=== PATIENT | male | born 1960 ===

== ENCOUNTER 2017-06-15 15:17 | Emergency (ER) | payer SELFPAY ==
[~2017-06-15] VITALS: Ht 180.3 cm; Wt 147.7 kg
[2017-06-15 15:19] VITALS: BP 163/89; PULSE 96; RESP 14; TEMP 99.2; O2SAT 96
--- NOTE | 2017-06-15 16:22 | RADRPT ---
EXAM DATE/TIME: 06/15/2017 16:06 [place] COMPARISON: No previous studies available for comparison. INDICATIONS : Left shoulder pain after lifting box. MEDICAL HISTORY : None. SURGICAL HISTORY : None. ENCOUNTER: Initial ACUITY: 2 weeks PAIN SCORE: 10/10 LOCATION: Left shoulder. FINDINGS: Multiple view examination of the left shoulder demonstrates no evidence of fracture or dislocation. The glenohumeral and acromioclavicular joints are maintained. There is normal range of motion betwee n internal and external rotation. Bony mineralization is normal. CONCLUSION: 1. No acute bony abnormality of the left shoulder identified. Casey Velez MD on June 15, 2017 at 16:19 Board Certified Radiologist. This report was verified electronically.
--- NOTE | 2017-06-15 17:44 | PD ---
HPI Chief Complaint: Injury Time Seen by Provider: 17:37 Travel History International Travel<30 days: No Contact w/Intl Traveler<30days: No Traveled to known affect area: No History of Present Illness HPI 57-year-old male here with left shoulder pain. Last week he was lifting a heavy box and felt a pop in his left shoulder. Since then he has had pain and limited range of motion left shoulder. Pain is aching and worse with range of motion. He denies any other injuries and he has no other complaints at this time. [facility] Social History Alcohol Use: No Tobacco Use: No Substance Use: No Allergies-Medications (Allergen,Severity, Reaction): Coded Allergies: Penicillins (Verified Allergy, Unknown, 06/15/17) Review of Systems Musculoskeletal: Positive: Limited ROM, Pain Skin: Positive Other (denies open wounds) Physical Exam Narrative GENERAL: Well-nourished male in no acute distress SKIN: Warm and dry. CARDIOVASCULAR: Regular rate and rhythm. No murmur appreciated. RESPIRATORY: No accessory muscle use. Clear to auscultation. Breath sounds equal bilaterally. Musculoskeletal : There is pain with range of motion of left shoulder which is limited. He has no reproducible tenderness to palpation left shoulder. NEUROLOGICAL: Awake and alert. No obvious cranial nerve deficits. Motor grossly within normal limits. Normal speech. Data Data Last Documented VS Vital Signs Date Time Temp Pulse Resp B/P (MAP) Pulse Ox O2 Delivery O2 Flow Rate FiO2 06/15/17 15:19 99.2 96 14 163/89 (113) 96 Room Air Orders Orders Shoulder, Complete (>2vws) (06/15/17 ) [facility] Medical Decision Making Medical Screen Exam Complete: Yes Emergency Medical Condition: Yes Medical Record Reviewed: Yes Differential Diagnosis Shoulder strain, rotator cuff tear, acromioclavicular separation Narrative Course X-ray imaging obtained in triage is negative. The patient be discharged with a sling for short-term use, recommended outpatient follow-up for MRI imaging. Diagnosis Primary Impression: Left shoulder strain Patient Instructions: General Instructions, Shoulder Pain (ED) Additional Instructions: Sling short term 2-3 days only. Tylenol or Motrin for pain. Perform passive range of motion activities several times a day. Follow-up with primary care physician for outpatient MRI imaging. Return for any emergent medical conditions. Med/Other Pt SpecificInfo: Orthopedic Instructions Disposition: DISCHARGE HOME Condition: Stable Christofer Patten Jun 15, 2017 17:44
== END 2017-06-15 18:18 | disposition home or self-care (01) ==
LOC: NEPK 15:17
DX: S46.912A Strain of unspecified muscle, fascia and tendon at shoulder and upper arm level, left arm, initial encounter (principal); X58.XXXA Exposure to other specified factors, initial encounter
CPT/HCPCS: 73030; 99283